=== PATIENT | female | born 1990 | race Caucasian/White ===

== ENCOUNTER 2025-05-11 07:59 | Outpatient (AMB) | payer OTHER, SELFPAY ==
--- OUTSIDE RECORDS SUMMARY | 2025-05-11 08:03 | XMS_ITS | Encounter Summary ---
Author Organization [facility] Address [address] [place] [address] Care Team Providers Care Logging Equipment Mechanic Name Role Phone MeghanSoledad RUSS Primary Care Provider + [phone] Pcp, No Primary Care Provider Unavailabl e Encounter Details Date Type Department Care Team (Latest Contact Info) Description 02/12/2021 Lab Requisition [facility] [address] Through [address] [place] [address] [address] [place] [address] Anuel Haddad MD [address] [place] [address] Encounter for laboratory testing for COVID-19 virus Social History Tobacco Use Types Packs/Day Years Used Date Smoking Tobacco: Never Smokeless Tobacco: Never Alcohol Use Standard Drinks/Week Comments Yes 3 (1 standard drink = 0.6 oz pur e alcohol) Comments No Sex and Gender Information Value Date Recorded Sex Assigned at Not on file Legal Sex Female 9:05 AM EDT Gender Identity Not on file Sexual Orientation Not on file documented as of this encounter Plan of Treatment Not on file documented as of this encounter Procedures Procedure Name Priority Date/Time Associated Diagnosis Comments COVID-19 (SARS-COV-2) - SEMA4 LAB Routine 02/12/2021 10:18 AM EDT Encounter for laboratory testing for COVID-19 virus [ICD-10-CM] documented in this encounter Results * COVID-19 (SARS-COV-2) (SEMA4) (02/12/2021 10:18 AM EDT) COVID-19 RT-PCR NOT-DETEC MERY Not-Detec mery 02/13/2021 2:07 PM EDT GINO AVALOS Comment:Interpretation: The viral RNA was not detected, making the COVID-19 diagnosis less likely. Clinical correlation is highly recommended.Final report signed by Pancho Max, Ph.D., Laboratory DirectorTests performed at [facility] Microbiology Nasopharyngeal swab / Unknown 02/12/2021 10:18 AM EDT 02/12/2021 10:18 AM EDT [facility]ative [facility] - 02/13/2021 2:07 PM EDT Performed by [facility] [address] [place] [address], CLIA# [id number] and [place] License# [id number] us Anuel Haddad MD MICROBIOLOGY - GENERAL ORDER MARIA TERESA Final Result GINO AVALOS documented in this encounter Visit Diagnoses Diagnosis Encounter for laboratory testing for COVID-19 virus documented in this encounter Care Teams Logging Equipment Mechanic Relationship Specialty Start Date End Date Soledad Christianson APRN [address] [place] [address] PCP - General Internal Medicine 10/11/18 02/28/23 Pcp, No PCP - General General Medicine 03/01/23 documented as of this encounter
--- NOTE | 2025-05-11 08:17 | MHC.PC.OV ---
Vital Signs 05/11/25 08:19 Height 5 ft 4.17 in Weight 136 lb 4 oz BMI 23.3 BP 120/72 Blood Pressure Location Lt brachial Position Sitting Pulse 66 Pulse Source Pulse Oximeter Temp 97.1 F Temp Source Temporal Artery Scan Pulse Oximetry (%) 99 Oxygen Delivery Method Room Air Intake Visit Reasons: establish care Intake Note: Patient is a new patient here to establish care for Cholesterol. Transferring care from [facility]. Medical records have been requested and have not received. Groover Operator Required: No Gas Station Service Attendant: Not Required per policy Accompanied by: Self / Same As Patient Allergies No Known Allergies Allergy (Verified 05/11/25 08:26) Medication List - Last Reconciled 05/11/25 by Margarita Woo PA-C spironolactone 50 mg PO BID Tobacco use date assessed: 05/11/25 Dental Screening Dental Screen Date: 05/11/25 Did you have a dental visit in the last 12 months?: Yes Did you have a dental problem in the last 6 months where you did not have access to dental care?: No Was dental information given to patient?: Patient has dentist HPI establish care HPI Details 34-year-old female coming to the office for the 1st time. Presenting for acne management and a consultation regarding breast reduction surgery. The patient has been using spironolactone for acne management, prescribed by a firer tunnel kiln, but has not followed up with the firer tunnel kiln for about a year. The patient reports that the medication has been somewhat effective, but she experiences breakthrough acne and is unsure if she should continue the medication. She has tried various treatments, including topical and oral medications, and is considering dermatology referral for further management. She has been told in the past she has elevated cholesterol. The patient is interested in breast reduction surgery due to discomfort during exercise and shoulder grooves and experiences both mild upper back and lower back pain. [facility] Surgical History History of tonsillectomy Family History Father Oral cancer Other Mental health disorder Substance use disorder Social History Housing: House Alcohol intake: current Alcohol intake frequency: a few times a month Patient Tobacco Use Status: Never used Tobacco e-Cigarette/Vaping Use: Never Used Second Hand Smoke Exposure: No service: Yes Current occupational status: employed Current occupation: Nurse Cognitive needs: No Hearing needs: No Vision needs: Yes (Glasses) Female Reproductive History Menstrual control method: none Total pregnancies: 0 History of abnormal pap smear: No Questionnaire PHQ-9 Over the last 2 weeks, how often have you been bothered by any of the following problems? 1. Little interest or pleasure in doing things: not at all 2. Feeling down, depressed, or hopeless: not at all 3. Trouble falling or staying asleep, or sleeping too much: not at all 4. Feeling tired or having little energy: not at all 5. Poor appetite or overeating: not at all 6. Feeling bad about yourself - or that you are a failure or have let yourself or your family down: not at all 7. Trouble concentrating on things, such as reading the newspaper or watching television: not at all 8. Moving or speaking so slowly that other people could have noticed. Or the opposite - being so fidgety or restless that you have been moving around a lot more than usual: not at all 9. Thoughts that you would be better off or of hurting yourself in some way: not at all Total score: 0 Depression Screening Interpretation: Negative Depression Screening Done: Yes 52822 - PHQ-9 Billing: Yes Source: Developed by Drs. Burt Garcia, Wendy Armando, Blake Eldridge and colleagues, with an educational jeffery from [employer]. Thrive Questionnaire Date Thrive assessed: 05/11/25 I am a: Patient What is your living situation today?: I have a steady place to live Within the past 12 months, did the food you bought not last and you didn't have the money to get more?: Never true Within the past 12 months, did you worry whether your food would run out before you got money to buy more?: Never true Do you have trouble paying for medicines?: No Do you have trouble getting transportation to medical appointments?: No Do you have trouble paying your heating and electricity bill?: No Do you have trouble taking care of your child, family member or friend?: No Do you have trouble with day-to-day activities such as bathing, preparing meals, shopping, managing finances, etc.?: No Are you currently unemployed and looking for a job?: No Are you interested in more education?: No Please select the resources that you would like help with: None Currently or been in a relationship where the following occur: No concerns reported THRIVE Score: 0 AUDIT C Alcohol Use Questionnaire (AUDIT-C) 1. How often do you have a drink containing alcohol?: Monthly or less 2. How many drinks containing alcohol do you have on a typical day when you are drinking?: 1 or 2 3. How often do you have six or more drinks on one occasion?: Never Total Score: 1 HAROON-7 AMB Questionnaire HAROON-7 Date HAROON - 7 assessed: 05/11/25 Feeling nervous, anxious, or on edge: 0 = Not at all Not being able to stop or control worryin = Not at all Worrying too much about different things: 0 = Not at all Trouble relaxin = Not at all Being so restless that it is hard to sit still: 0 = Not at all Becoming easily annoyed or irritable: 0 = Not at all Feeling afraid as if something awful might happen: 0 = Not at all Total HAROON-7 score (0-4 normal; 5-9 mild; 10-14 moderate; 15-21 severe): 0 Source: Developed by Drs. Burt Garcia, Wendy Armando, Blake Eldridge and colleagues, with an educational jeffery from [employer]. HAROON-7 Assessment Billing HAROON-7 Assessment Tool: HAROON-7 Assessment 37725 Review of Systems Const Denies body aches, Denies chills, Denies fever(s), Denies headache(s) and Denies poor appetite Eyes Reports no additional complaints ENT Denies dysphagia, Denies dizziness, Denies headache(s) and Denies odynophagia Card Denies chest pain, Denies syncope, Denies edema, Denies irregular heart rhythm, Denies lightheadedness and Denies dyspnea Resp Denies cough and Denies dyspnea GI Denies abdominal pain, Denies constipation, Denies dysphagia, Denies diarrhea, Denies nausea, Denies odynophagia and Denies vomiting Reports no additional complaints Musc Reports no additional complaints and Denies abnormal gait Skin/Breast Reports system reviewed and no additional complaints, except as documented Neuro Denies abnormal gait, Denies dizziness, Denies syncope and Denies headache(s) Psych Reports no additional complaints Physical exam (Primary Care) Vital Signs: Last Vital Signs Temp 97.1 F 05/11/25 08:19 Pulse 66 05/11/25 08:19 BP 120/72 05/11/25 08:19 Pulse Ox 99 05/11/25 08:19 Oxygen Delivery Method Room Air 05/11/25 08:19 BMI result Body Mass Index 23.3 Tobacco/Smoking Status: Tobacco use Status Tobacco use date assessed 05/11/25 05/11/25 08:26 Patient Tobacco Use Status Never used Tobacco 05/11/25 08:26 e-Cigarette/Vaping Use Never Used 05/11/25 08:26 PHQ-9: PHQ-9 Score PHQ-9: Total score 0 05/11/25 08:37 Depression Screening Interpretation: Negative Thrive Assessment: Date of Thrive Assessment Date Thrive assessed 05/11/25 05/11/25 08:26 Currently or been in a relationship where the following occur: No concerns reported Const General: cooperative, healthy appearing, comfortable and no acute distress Orientation/consciousness: patient oriented x3 HENMT Head: Yes normocephalic Ears: hearing grossly normal bilaterally General nose exam: Normal external nose present Eyes General: appearance normal, both eyes and all related structures Conjunctivae: conjunctivae normal Neck Neck: Yes full ROM and Yes no lymphadenopathy Resp Effort & Inspection: normal respiratory effort Auscultation: clear to auscultation bilaterally, no crackles, no rales, no rhonchi and no wheezes Cardio Rate: regular rate Rhythm: regular rhythm Skin General skin exam: no rashes or lesions noted Neuro General: patient oriented x3 Gait exam (Neuro): Normal gait present Extrem General: Yes normal to inspection, Yes full ROM and No edema Psych Affect: normal affect Attitude: cooperative Insight: Good insight present (Psych) Judgement: Good judgement present (Psych) Coding Level of Care Code New Pt Level 4 (74989) Diagnoses Acne L70.9 Hypercholesterolemia E78.00 Large breasts N62 Chronic midline low back pain without sciatica M54.50; G89.29 Back pain location: low back pain Chronicity: chronic Back pain laterality: midline Sciatica presence: without sciatica Additional Codes HAROON-7 Assessment Billing - HAROON-7 Assessment Tool: HAROON-7 Assessment 44639 ([id number]) PHQ-9 - 75292 - PHQ-9 Billing: Yes ([id number]) Assessment & Plan Assessment & Plan (1) Acne: Code(s): L70.9 - Acne, unspecified Category: Medical Plan: Patient is currently on spironolactone b.i.d. for management of acne. She has tried oral and topical doxycycline without good improvement. Referral was placed to Dermatology today. (2) Hypercholesterolemia: Code(s): E78.00 - Pure hypercholesterolemia, unspecified Category: Medical Plan: Avoid foods that are high in cholesterol such as red meat, fried foods, eggs and baked goods. Triglyceride goal of less than 150 and LDL goal of less than 130. Ordered for updated blood work (3) Large breasts: Code(s): N62 - Hypertrophy of breast Category: Medical Plan: Referral will be placed to [facility] Plastic surgery with medical necessity letter today. (4) Back pain: Code(s): M54.9 - Dorsalgia, unspecified Category: Medical Qualifiers: Back pain location: low back pain Chronicity: chronic Back pain laterality: midline Sciatica presence: without sciatica Qualified Code(s): M54.50 - Low back pain, unspecified; G89.29 - Other chronic pain Plan: Patient has upper and lower back pain worsened after exercise which she believes is due to the size of her breasts. Referral was placed to Plastic surgery today for consideration of breast reduction. Plan The patient will continue with spironolactone for acne management, with a referral to dermatology for further evaluation and management options. A dermatology referral will be provided, and local dermatology offices will be listed for the patient to choose from. Blood work has been ordered. A referral to plastic surgery for breast reduction has been initiated, and a medical necessity letter will be written to support the procedure. The patient will be scheduled for a follow-up visit in three months to review blood work results and discuss any further management needed. Preventative care measures, including up-to-date Pap smears and no family history of breast cancer, have been noted. This note was constructed using voice recognition software. While every effort has been made to ensure accuracy and pulmonary function technologist, still areas may have been included sometimes these areas may affect the content or meeting of the given symptoms. Total time spent caring for the patient today was 30 minutes. This includes time spent before the visit reviewing the chart, time spent during the visit, and time spent after the visit and documentation. Patient was informed and verbally consented to the use of an ambient scribe for clinic note documentation during this visit. Orders: Orders Complete Blood Count Auto Diff Today E78.00 - Pure hypercholesterolemia, unspecified, Z00.00 - Encounter for general adult medical examination without abnormal findings Vitamin D 25-OH Total Today E78.00 - Pure hypercholesterolemia, unspecified, Z00.00 - Encounter for general adult medical examination without abnormal findings Vitamin B12 and Folate Today E78.00 - Pure hypercholesterolemia, unspecified, Z13.21 - Encounter for screening for nutritional disorder Free T4 (Free Thyroxine) Today E78.00 - Pure hypercholesterolemia, unspecified, Z00.00 - Encounter for general adult medical examination without abnormal findings Lipid Panel Today E78.00 - Pure hypercholesterolemia, unspecified Comprehensive Met. Panel Today E78.00 - Pure hypercholesterolemia, unspecified, Z00.00 - Encounter for general adult medical examination without abnormal findings TSH reflex Free T4 Today E78.00 - Pure hypercholesterolemia, unspecified, Z00.00 - Encounter for general adult medical examination without abnormal findings Referrals Dermatology Referral L70.9 - Acne, unspecified Plastic Surgery Referral M54.9 - Dorsalgia, unspecified, N62 - Hypertrophy of breast Medications: New spironolactone 50 mg PO BID 60 tabs 1RF
[2025-05-11 08:19] VITALS: BP 120/72; PULSE 66; TEMP 36.2; O2SAT 99; BMI 23.3
== END 2025-05-11 08:51 | disposition home or self-care (01) ==
LOC: HO.HMCH 07:59
DX: L70.9 Acne, unspecified (principal); E78.00 Pure hypercholesterolemia, unspecified; N62 Hypertrophy of breast; M54.50 Low back pain, unspecified; G89.29 Other chronic pain

== ENCOUNTER → 2025-05-11 07:59 | Outpatient (BNVA) | payer OTHER, SELFPAY | DX: L70.9 Acne, unspecified (principal); E78.00 Pure hypercholesterolemia, unspecified; N62 Hypertrophy of breast; M54.50 Low back pain, unspecified; G89.29 Other chronic pain | CPT/HCPCS: 96127; 99202 ==

== ENCOUNTER 2025-05-21 07:52 | Outpatient (REF) | payer OTHER, SELFPAY ==
--- OUTSIDE RECORDS SUMMARY | 2025-05-21 07:56 | XMS_ITS | Encounter Summary ---
Author Organization [facility] Address [address] [place] [address] Care Team Providers Care Land Lease Information Clerk Name Role Phone MeghanSoledad RUSS Primary Care Provider + [phone] Pcp, No Primary Care Provider Unavailabl e Encounter Details Date Type Department Care Team (Latest Contact Info) Description 02/12/2021 Lab Requisition [facility] [address] Through [address] [place] [address] [address] [place] [address] Anuel Haddad MD [address] [place] [address] Encounter for laboratory testing for COVID-19 virus [...] Pancho Max, Ph.D., Laboratory DirectorTests performed at [facility] Microbiology Nasopharyngeal swab / Unknown 02/12/2021 10:18 AM EDT 02/12/2021 10:18 AM EDT [facility]ative [facility] - 02/13/2021 2:07 PM EDT Performed by [facility] [address] [place] [address], CLIA# [id number] and [place] License# [id number] us Anuel Haddad MD MICROBIOLOGY - GENERAL ORDER MARIA TERESA Final Result GINO AVALOS documented in this encounter Visit Diagnoses Diagnosis Encounter for laboratory testing for COVID-19 virus documented in this encounter Care Teams Land Lease Information Clerk Relationship Specialty Start Date End Date Soledad Christianson APRN [address] [place] [address] PCP - General Internal Medicine 10/11/18 02/28/23 Pcp, No PCP - General General Medicine 03/01/23 documented as of this encounter
[2025-05-21 08:04] LABS: MANUAL DIFF FLAG NO
[2025-05-21 08:05] LABS: Basophils Absolute Auto 0.1 X10*3/uL (0.0-0.2); Basophils Percent Auto 1.2 % (0-2); Hematocrit 39.4 % (37.0-47.0); Hemoglobin 13.4 g/dl (12.0-16.0); Imm Gran Abs Auto 0.01 X10*3/uL (0.00-0.03); Imm Gran Pct Auto 0.2 % (0.0-0.4); Lymphocytes Absolute Auto 1.1 X10*3/uL (1.2-4.9); Lymphocytes Percent Auto 26.5 % (20-40); Mean Corpuscular Volume 88.3 fL (80.0-98.0); Mean Platelet Volume 8.2 fL (9.4-12.3); Monocytes Absolute Auto 0.2 X10*3/uL (0.1-1.2); Monocytes Percent Auto 5.8 % (2-11); Neutrophils Absolute Auto 2.7 x10*3/uL (2.0-8.3); Neutrophils Percent Auto 65.3 % (45-73); Platelet Count 324 X10*3/uL (160-400); Red Blood Count 4.46 X10*6/uL (4.20-5.50); Red Cell Distribution Width 12.2 % (11.0-16.0); White Blood Count 4.2 X10*3/uL (4.8-10.8)
[2025-05-21 09:36] LABS: Alanine Aminotransferase 21 U/L (0-31); Albumin Level 4.8 g/dL (3.5-5.0); Alkaline Phosphatase 71 U/L (39-117); Anion Gap 11 (12-20); Aspartate Amino Transferase 27 U/L (5-31); Bilirubin Total 0.5 mg/dL (0.0-1.0); Blood Urea Nitrogen 17 mg/dL (9-16); Calcium 9.2 mg/dL (8.4-10.2); Carbon Dioxide 27 mmol/L (22-29); Chloride 105 mmol/L (96-108); Cholesterol 205 mg/dL (<200); Estimated Glomerular Filt Rate > 60; Glucose Random 81 mg/dL (60-115); HDL Cholesterol 66 mg/dL (>40); LDL Cholesterol Calculated 131 mg/dL (<100); Potassium 4.4 mmol/L (3.3-5.1); Sodium 139 mmol/L (135-145); Total Protein 7.4 g/dL (6.5-8.0); Triglycerides 42 mg/dL (<150)
[2025-05-21 09:40] LABS: Free T4 (Free Thyroxine) 0.96 ng/dL (0.71-1.85); TSH reflex Free T4 1.66 uIU/mL (0.32-4.0); Vitamin D 25-OH Total 23.9 ng/mL (>30)
[2025-05-21 09:44] LABS: Folate 9.3 ng/mL (> or = 4.0)
[2025-05-21 10:11] LABS: Vitamin B12 489 pg/mL (200-900)
== END 2025-05-21 07:53 | disposition home or self-care (01) ==
LOC: HO.LAB 07:52
DX: Z00.00 Encounter for general adult medical examination without abnormal findings (principal); E78.00 Pure hypercholesterolemia, unspecified; Z13.21 Encounter for screening for nutritional disorder
CPT/HCPCS: 36415; 80053; 80061; 82306; 82607; 82746; 84439; 84443; 85025

== ENCOUNTER 2025-08-12 08:31 | Outpatient (AMB) | payer OTHER, SELFPAY ==
[2025-08-12 08:33] VITALS: BP 120/62; PULSE 77; O2SAT 99; BMI 22.9
--- NOTE | 2025-08-12 08:33 | A.OFFPC_ITS ---
Vital Signs 08/12/25 08:33 Height 5 ft 4.17 in Weight 134 lb 2 oz BMI 22.9 BP 120/62 Blood Pressure Location Lt brachial Position Sitting Pulse 77 Pulse Source Pulse Oximeter Pulse Oximetry (%) 99 Oxygen Delivery Method Room Air Intake Visit Reasons: Annual Exam Hair Dresser Required: No Accompanied by: Self / Same As Patient Allergies No Known Allergies Allergy (Verified 08/12/25 08:44) Medication List - Last Reconciled 08/12/25 by Margarita Woo PA-C spironolactone 50 mg PO BID Tobacco use date assessed: 05/11/25 Dental Screening Dental Screen Date: 08/12/25 Did you have a dental visit in the last 12 months?: Yes Did you have a dental problem in the last 6 months where you did not have access to dental care?: No Was dental information given to patient?: Patient has dentist HPI Annual Exam HPI Details 35-year-old female with past medical his tory of hypercholesterolemia last seen 04/2025 coming in for annual exam. Presenting for a routine physical examination. The patient is up to date on Pap smears, with the last one conducted on March 19, and is advised to get a referral for gynecology. The patient has an upcoming dermatology appointment and is undergoing physical therapy for back pain, with minimal improvement noted. Pap smear: chairlift operator 2023 Vaccinations: Td UTD she believes [facility] Surgical History History of tonsillectomy Family History Father Oral cancer Other Mental health disorder Substance use disorder Social History Housing: House Alcohol intake: current Alcohol intake frequency: a few times a month Patient Tobacco Use Status: Never used Tobacco e-Cigarette/Vaping Use: Never Used Second Hand Smoke Exposure: No service: Yes Current occupational status: employed Current occupation: Nurse Cognitive needs: No Hearing needs: No Vision needs: Yes (Glasses) Questionnaire Thrive Questionnaire Date Thrive assessed: 05/11/25 I am a: Patient What is your living situation today?: I have a steady place to live Within the past 12 months, did the food you bought not last and you didn't have the money to get more?: Never true Within the past 12 months, did you worry whether your food would run out before you got money to buy more?: Never true Do you have trouble paying for medicines?: No Do you have trouble getting transportation to medical appointments?: No Do you have trouble paying your heating and electricity bill?: No Do you have trouble taking care of your child, family member or friend?: No Do you have trouble with day-to-day activities such as bathing, preparing meals, shopping, managing finances, etc.?: No Are you currently unemployed and looking for a job?: No Are you interested in more education?: No Please select the resources that you would like help with: None Currently or been in a relationship where the following occur: No concerns reported THRIVE Score: 0 HAROON-7 AMB Questionnaire HAROON-7 Date HAROON - 7 assessed: 05/11/25 Source: Developed by Drs. Burt Garcia, Wendy Armando, Blake Eldridge and colleagues, with an educational jeffery from [employer]. Review of Systems Const Denies body aches, Denies chills, Denies fever(s), Denies headache(s) and Denies poor appetite Eyes Reports no additional complaints ENT Denies dysphagia, Denies dizziness, Denies headache(s) and Denies odynophagia Card Denies chest pain, Denies syncope, Denies edema, Denies irregular heart rhythm, Denies lightheadedness and Denies dyspnea Resp Denies cough and Denies dyspnea GI Denies abdominal pain, Denies constipation, Denies dysphagia, Denies diarrhea, Denies nausea, Denies odynophagia and Denies vomiting Reports no additional complaints Musc Reports no additional complaints and Denies abnormal gait Skin/Breast Reports system reviewed and no additional complaints, except as documented Neuro Denies abnormal gait, Denies dizziness, Denies syncope and Denies headache(s) Psych Reports no additional complaints Physical exam (Primary Care) Vital Signs: Last Vital Signs Pulse 77 08/12/25 08:33 BP 120/62 08/12/25 08:33 Pulse Ox 99 08/12/25 08:33 Oxygen Delivery Method Room Air 08/12/25 08:33 BMI result Body Mass Index 22.9 Tobacco/Smoking Status: Tobacco use Status Tobacco use date assessed 05/11/25 08/12/25 08:39 Patient Tobacco Use Status Never used Tobacco 08/12/25 08:39 e-Cigarette/Vaping Use Never Used 08/12/25 08:39 Thrive Assessment: Date of Thrive Assessment Date Thrive assessed 05/11/25 08/12/25 08:39 Currently or been in a relationship where the following occur: No concerns reported Const General: cooperative, healthy appearing, comfortable and no acute distress Orientation/consciousness: patient oriented x3 HENMT Head: Yes normocephalic Ears: hearing grossly normal bilaterally, external ears normal, TM's normal bilaterally and EAC's normal General nose exam: Normal external nose present Face and sinus: Yes normal facial exam and Yes sinuses nontender Mouth: Normal oral and palatal mucosa present and tongue normal Throat: Yes posterior oropharynx normal Eyes General: appearance normal, both eyes and all related structures Conjunctivae: conjunctivae normal Pupils: Equal, round and reactive pupils present EOM: EOMs intact bilaterally and No Nystagmus present Neck Neck: Yes normal visual inspection, Yes full ROM and Yes no lymphadenopathy Chest Chest palpation & inspection: normal inspection of the chest Resp Effort & Inspection: normal respiratory effort Auscultation: clear to auscultation bilaterally, no crackles, no rales, no rhonchi, no wheezes and breath sounds present Cardio Rate: regular rate Rhythm: regular rhythm Peripheral pulses: radial pulses present and dorsalis pedis present GI Inspection: Yes normal to inspection and No Abdominal wall edema Palpation (GI): Soft to palpation, not firm and nontender Auscultation: normal bowel sounds Rectal Exam - Female: deferred General: Yes no CVA tenderness Back/Spine/Pelvis Back: no CVA tenderness Skin General skin exam: no rashes or lesions noted Neuro General: patient oriented x3 Cranial nerves: Yes Equal, round and reactive pupils present, Yes Midline tongue present, Yes Ability to bilaterally elevate shoulders present and No Nystagmus present Gait exam (Neuro): Normal gait present Extrem General: Yes normal to inspection, Yes full ROM, No no pedal edema and No edema Psych Speech and movement: Normal speech and movement present Affect: normal affect Insight: Good insight present (Psych) Judgement: Good judgement present (Psych) Coding Level of Care Code Est Pt Prev Care 18-39y(38244) Diagnoses Annual physical exam Z00.00 Hypercholesterolemia E78.00 Acne L70.9 Large breasts N62 Chronic midline low back pain without sciatica M54.50; G89.29 Back pain location: low back pain Chronicity: chronic Back pain laterality: midline Sciatica presence: without sciatica Vitamin D deficiency E55.9 Assessment & Plan Assessment & Plan (1) Annual physical exam: Code(s): Z00.00 - Encounter for general adult medical examination without abnormal findings Category: Medical Plan: Patient is up-to-date on all recommended routine screenings for her age. She believes she is up-to-date on her vaccinations however most recent TD is 2008. She will check with her most recent records see if this is up-to-date. Blood work is up-to-date and has been reviewed with the patient today. Plan to follow up yearly or sooner as needed (2) Hypercholesterolemia: Code(s): E78.00 - Pure hypercholesterolemia, unspecified Category: Medical Plan: Avoid foods that are high in cholesterol such as red meat, fried foods, eggs and baked goods. Triglyceride goal of less than 150 and LDL goal of less than 130. Last LDL within goal. (3) Acne: Code(s): L70.9 - Acne, unspecified Category: Medical Plan: Patient is currently on spironolactone b.i.d. for management of acne. She has tried oral and topical doxycycline without good improvement. Has appointment with dermatology in December. (4) Large breasts: Code(s): N62 - Hypertrophy of breast Category: Medical Plan: Had meeting with [facility] plastic surgery and undergoing PT at this time and consideration for surgery to follow. (5) Back pain: Code(s): M54.9 - Dorsalgia, unspecified Category: Medical Qualifiers: Back pain location: low back pain Chronicity: chronic Back pain laterality: midline Sciatica presence: without sciatica Qualified Code(s): M 54.50 - Low back pain, unspecified; G89.29 - Other chronic pain Plan: Patient has upper and lower back pain worsened after exercise which she believes is due to the size of her breasts. Has been working with PT and has not yet seen improvement. (6) Vitamin D deficiency: Code(s): E55.9 - Vitamin D deficiency, unspecified Category: Medical Plan: She will obtain supplementation over the counter. Plan This note was constructed using voice recognition software. While every effort has been made to ensure accuracy and swine nutritionist, still areas may have been included sometimes these areas may affect the content or meeting of the given symptoms. Total time spent caring for the patient today was 30 minutes. This includes time spent before the visit reviewing the chart, time spent during the visit, and time spent after the visit and documentation. Patient was informed and verbally consented to the use of an ambient scribe for clinic note documentation during this visit. Orders: Referrals DECORATING INSPECTOR Referral Z12.4 - Encounter for screening for malignant neoplasm of cervix
--- OUTSIDE RECORDS SUMMARY | 2025-08-12 09:43 | XMS_ITS | Encounter Summary ---
Author Organization [facility] Address [address] [place] [address] Care Team Providers Care Dragline Engineer Name Role Phone Soledad Christianson APRN Primary Care Provider + [phone] Pcp, No Primary Care Provider Unavailabl e Encounter Details Date Type Department Care Team (Late st Contact Info) Description 10/11/2018 Scanned Document [address] [place] [phone] Provider, Generic Social History Tobacco Use Types Packs/Day Years [...] Procedure Name Priority Date/Time Associated Diagnosis Comments HOME CARE SIGNED ORDERS 10/11/2018 documented in this encounter Results * HOME CARE SIGNED ORDERS (10/11/2018) Narrative 10/11/2018 Ordered by an unspecified provider. us Generic Provider HX AMB PROCEDURES NO RESULTS RO UTING Edited Result - Final documented in this encounter Visit Diagnoses Not on filedocumented in this encounter Care Teams Dragline Engineer Relationship Specialty Start Date End Date Soledad Christianson APRN [address] [place] [address] PCP - General Internal Medicine 10/11/18 02/28/23 Pcp, No PCP - General General Medicine 03/01/23 documented as of this encounter
--- OUTSIDE RECORDS SUMMARY | 2025-08-12 09:43 | XMS_ITS | Patient Health Record ---
Author Organization [facility] Address [address] [place] [address] Care Team Providers Care Spreader Operator Name Role Phone NICK CALDERON Unavailable [phone] Allergies No Known Allergies Reason For Referral No Information Social History Tobacco Use: Social History Observation Description Date Details (start date - stop date) Never Smoker NA - NA Tobacco Use/Smoking Question Answer Notes Are you a nonsmoker Alcohol Screen (Audit-C) Question Answer Notes Did you have a drink contain ing alcohol in the past year? Yes How often did you have a dri nk containing alcohol in the past year? 2 to 3 times a week (3 points) How many drinks did you have on a typical day when you were drinking in the past year? 1 or 2 drinks (0 point) How often did you have 6 or more drinks on one occasion in the past year? Never (0 point) Points 3 Interpretation Positive Plan Of Treatment No Information Insurance Providers Payer Name Payer Address Payer Phone Subscriber Number Group Number Insured Name Patient Relationship to Insured Coverage Start Date Coverage End Date [facility] [address] [place] [id number] ELVIS SMITH Self - patient is the insured Medical (General) History Medical History History ICD Code Acne, unspecified L70.9 Surgical History Surgery Date(Month/Year) Tonsillectomy 10/2017
--- OUTSIDE RECORDS SUMMARY | 2025-08-12 09:43 | XMS_ITS | Clinical Summary ---
Author Organization [facility] Address [address] [place] [address] Care Team Providers Care Supply Tech Name Role Phone Pcp, No Primary Care Provider Unavailabl e Allergies No known active allergies Medications doxycycline (VIBRAMYCIN) 100 MG capsule 09/24/2018 Active Immunizations Immunization Administration Dates Next Due Covid-19 mRNA Primary Series Vaccine - Moderna 0.5 mL Full Dose 12/17/2020,11/17/2020 Family History Medical History Relation Name Comments No Known Problems Father No Known Problems Mother No Known Problems Sister Relation Name Status Comments Father Alive Mother Alive Sister Alive Social History Tobacco Use Types Packs/Day Years Used Date Smoking Tobacco: Never Smokeless Tobacco: Never Alcohol Use Standard Drinks/Week Comments Yes 3 (1 standard drink = 0.6 oz pur e alcohol) Comments No Sex and Gender Information Value Date Recorded Sex Assigned at Not on file Legal Sex Female 9:05 AM EDT Gender Identity Not on file Sexual Orientation Not on file Last Filed Vital Signs Vital Sign Reading Time Taken Comments Blood Pressure 118/79 10/11/2018 4:37 PM EST Pulse 59 10/11/2018 4:37 PM EST Temperature 36.6 C (97.8 F) 10/11/2018 4:37 PM EST Respiratory Rate 16 10/11/2018 4:37 PM EST Oxygen Saturation - - Inhaled Oxygen Concentration - - Weight 62.1 kg (137 lb) 10/11/2018 4:37 PM EST Height 165.1 cm (5' 5 ) 10/11/2018 4:37 PM EST Body Mass Index 22.8 10/11/2018 4:37 PM EST Plan of Treatment Health Maintenance Due Date Last Done Comments Hepatitis C Virus Screening 1988 HIV Screening 2001 DTaP/Tdap/Td Vaccines (1 - Tdap) 2007 Hepatitis B Vaccines (1 of 3 - 19+ 3-dose series) 2007 Pap Smear (Ages 21-65) 2009 HPV Vaccines (1 - 3-dose SCD M series) 2015 Influenza Vaccine 06/26/2025 09/22/2020 COVID-19 Vaccine (3 - 2024-2 6 season) 2025 12/17/2020, 11/17/2020 Pneumococcal Vaccine: Pediatric (0-5 Years) and At-Risk Patients (6 to 49 Years) Aged Out No longer eligible b ased on patient's age to complete this topic Insurance [facility] Care Teams Supply Tech Relationship Specialty Start Date End Date Pcp, No PCP - General General Medicine 03/01/23
--- OUTSIDE RECORDS SUMMARY | 2025-08-12 09:43 | XMS_ITS | Encounter Summary ---
Author Organization [facility] Address [address] [place] [address] Care Team Providers Care Field Service Coordinator Name Role Phone MeghanSoledad RUSS Primary Care Provider + [phone] Pcp, No Primary Care Provider Unavailabl e Encounter Details Date Type Department Care Team (Latest Contact Info) Description 02/12/2021 Lab Requisition [facility] [address] Through [address] [place] [address] [address] [place] [address] Anuel Haddad MD [address] [place] [address] Encounter for laboratory testing for COVID-19 virus [...] Pancho Max, Ph.D., Laboratory DirectorTests performed at [facility] Nasopharyngeal swab / Unknown 02/12/2021 10:18 AM EDT 02/12/2021 10:18 AM EDT N[facility]ative [facility] - 02/13/2021 2:07 PM EDT Performed by [facility] [address] [place] [address], CLIA# [id number] and [place] License# [id number] us Anuel Haddad MD MICROBIOLOGY - GENERAL ORDER MARIA TERESA Final Result GINO AVALOS documented in this encounter Visit Diagnoses Diagnosis Encounter for laboratory testing for COVID-19 virus documented in this encounter Care Teams Field Service Coordinator Relationship Specialty Start Date End Date Soledad Christianson APRN [address] [place] [address] PCP - General Internal Medicine 10/11/18 02/28/23 Pcp, No PCP - General General Medicine 03/01/23 documented as of this encounter
--- OUTSIDE RECORDS SUMMARY | 2025-08-12 09:43 | XMS_ITS | Encounter Summary ---
Author Organization [facility] Address [address] [place] [address] Care Team Providers Care Machine Stamper Name Role Phone Pcp, No Primary Care Provider Unavailabl e Soledad Christianson APRN Primary Care Provider [phone] Pcp, No Primary Care Provider Unavailabl e Encounter Details Date Type Department Care Team (Late st Contact Info) Description 08/22/2018 Scanned Document [address] [phone] Sergio Boo MD [address] [place] [address] Social History Tobacco Use Types Packs/Day Years Used Date Smoking Tobacco: Never Assessed Comments Unknown Sex and Gender Information Value Date Recorded Sex Assigned at Not on file Legal Sex Female 9:05 AM EDT Gender Identity Not on file Sexual Orientation Not on file documented as of this encounter Plan of Treatment Not on file documented as of this encounter Visit Diagnoses Not on filedocumented in this encounter Care Teams Machine Stamper Relationship Specialty Start Date End Date Pcp, No PCP - General General Medicine 07/24/18 10/10/18 Soledad Christianson APRN [address] [place] [address] PCP - General Internal Medicine 10/11/18 02/28/23 Pcp, No PCP - General General Medicine 03/01/23 documented as of this encounter
--- OUTSIDE RECORDS SUMMARY | 2025-08-12 09:43 | XMS_ITS | Encounter Summary ---
Author Organization [facility] Address [address] [place] [address] Care Team Providers Care Car Varnisher Name Role Phone Pcp, No Primary Care Provider Unavailabl e Soledad Christianson APRN Primary Care Provider [phone] Pcp, No Primary Care Provider Unavailabl e Encounter Details Date Type Department Care Team (Late st Contact Info) Description 08/22/2018 Scanned Document [address] [phone] Sergio Boo MD [address] [place] [address] Social History Tobacco Use Types Packs/Day Years [...] on filedocumented in this encounter Care Teams Car Varnisher Relationship Specialty Start Date End Date Pcp, No PCP - General General Medicine 07/24/18 10/10/18 Soledad Christianson APRN [address] [place] [address] PCP - General Internal Medicine 10/11/18 02/28/23 Pcp, No PCP - General General Medicine 03/01/23 documented as of this encounter
== END 2025-08-12 09:00 | disposition home or self-care (01) ==
LOC: HO.HMCH 08:32
DX: Z00.00 Encounter for general adult medical examination without abnormal findings (principal); E78.00 Pure hypercholesterolemia, unspecified; L70.9 Acne, unspecified; N62 Hypertrophy of breast; M54.50 Low back pain, unspecified; G89.29 Other chronic pain; E55.9 Vitamin D deficiency, unspecified

== ENCOUNTER 2025-09-02 15:00 | Outpatient (RCR) | payer OTHER, SELFPAY ==
--- NOTE | 2025-07-01 08:46 | MHC.PT.EP ---
[facility] [place] Office [place] Office [place] Office [address] [phone] F: [phone] F: [phone] F: [phone] F: [phone] Physical Therapy Plan of Care Date of Evaluation: 07/01/25 Date of Surgery: n/a Diagnosis: chronic back pain Assessment: Patient is a 34 year old female presenting to PT with complaints of pain in her upper back. Pt reports onset of pain began 1 year ago due to insidious onset. She presents today with impairments in posture, periscap strength. 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 Pt expresses continuous churn buttermaker goal of reducing pain, and is motivated to work towards this in PT. Clinical presentation today is most consistent with signs and sx associated with upper back pain and pt will benefit from skilled PT 2 week x 4 weeks to address the following problems and impairments noted upon evaluation: posture, periscap strength. These problems limit the patient with the following functional activities: work, ADLs. The prescribed treatment plan of care is medically necessary. Co-morbidities of none were identified and taken into considerations of plan of care. Pt was educated on HEP, role of PT, prognosis, POC. Frequency and Duration: The patient will be seen 2 x week x 4 weeks Short Term Goals: Pt will demonstrate compliance with initial HEP in 2 visits. Pt will demonstrate improved periscap strength by 1/3 grade in 2 weeks. Group Home Goals: Pt will demonstrate improved pain overall with ADLs and work activities for return to PLOF. Pt will demonstrate NDI score <5% disability in 4 weeks for improved functional mobility. Treatment Plan: Modalities to reduce pain, spasms and effusion. Manual therapy to restore motion and function. Therapeutic exercise to improve strength and flexibility. Neuromuscular re-education for posture and balance. Therapeutic activities to return to functional activities of daily living. Electronically signed by: Mechelle Thomas, PT, DPT, ATC Please sign and return to therapist. Thank you for your referral.
--- NOTE | 2025-09-08 09:19 | MHC.PT.DC ---
[facility] [place] [facility] [place] [facility] [place] [facility] [address] Alicia Brennan [address] [phone] F: [phone] F: [phone] F: [phone] F: [phone] Physical Therapy Discharge Report Diagnosis: upper back pain Date of Surgery: n/a Date of Evaluation: 07/01/25 Date of Discharge: 09/08/25 Treatments to Date: 8 Cancellations to Date: 2 No Shows to Date: 0 Discharge Status: Independent with HEP Recommend MD Follow-up Discharge Summary: Pt attended last PT appointment with OCEANOGRAPHY TEACHER. She continues to have a lot of tightness in her upper back and neck area. Recommend following up with her referring provider to discuss ongoing pain/tightness. Electronically signed by: Mechelle Thomas, PT, DPT, ATC Please sign and return to therapist. Thank you for your referral.
== END 2025-09-08 09:20 | disposition home or self-care (01) ==
LOC: HO.PTCHIC 15:00
DX: M54.50 Low back pain, unspecified (principal); M54.2 Cervicalgia; G89.29 Other chronic pain
CPT/HCPCS: 97110; 97140; 97161

== ENCOUNTER 2025-10-13 10:53 | Outpatient (AMB) | payer OTHER, SELFPAY ==
[2025-10-13 11:03] VITALS: BP 122/74; PULSE 73; TEMP 36.3; O2SAT 99; BMI 22.9
--- NOTE | 2025-10-13 11:03 | A.OFFPC_ITS ---
Vital Signs 10/13/25 11:03 Height 5 ft 4.17 in Weight 134 lb 2 oz BMI 22.9 BP 122/74 Blood Pressure Location Lt brachial Position Sitting Pulse 73 Pulse Source Pulse Oximeter Temp 97.3 F Temp Source Temporal Artery Scan Pulse Oximetry (%) 99 Oxygen Delivery Method Room Air Intake Visit Reasons: sore throat, nasal drip, cough Allergies No Known Allergies Allergy (Verified 10/13/25 11:05) Medication List - Last Reconciled 10/13/25 by Vandana Patricia MD benzocaine (Chloraseptic Warming Sore Throat) 15 mg mucous membrane Q3H PRN dextromethorphan-guaifenesin 5-100 mg/5 mL (Robitussin Cough-Chest Congestion DM) 10 mL PO Q4-8H PRN fluticasone propionate 50 mcg/actuation 1 spray intranasal DAILY metformin 500 mg PO DAILY naproxen 500 mg PO BID PRN valacyclovir 1,000 mg PO BID PRN Tobacco use date assessed: 10/13/25 Dental Screening Dental Screen Date: 10/13/25 Did you have a dental visit in the last 12 months?: Yes Did you have a dental problem in the last 6 months where you did not have access to dental care?: No Was dental information given to patient?: Patient has dentist HPI HPI Comments History of Present Illness Details The patient is a 35-year-old female presenting with cold-like symptoms that started approximately one week ago. She reports nasal congestion, a productive cough with yellow-green sputum that began two days ago, and hoarseness that started last Sunday. She also notes an intermittent sore throat, postnasal drip, some throat itchiness. The patient denies fever, chills, facial pain, or difficulty breathing. For self-treatment, she has been using a decongestant for the past 3-4 days, Tylenol as needed, and NyQuil to help with sleep, though her cough was worse last night. Her only regular medication is metformin. She reports receiving her flu vaccine at the end of August. [facility] Surgical History History of tonsillectomy Family History Father Oral cancer Other Mental health disorder Substance use disorder Social History Housing: House Alcohol intake: current Alcohol intake frequency: a few times a month Patient Tobacco Use Status: Never used Tobacco e-Cigarette/Vaping Use: Never Used Second Hand Smoke Exposure: No service: Yes Current occupational status: employed Current occupation: Nurse Cognitive needs: No Hearing needs: No Vision needs: Yes (Glasses) Questionnaire PHQ-9 Over the last 2 weeks, how often have you been bothered by any of the following problems? 1. Little interest or pleasure in doing things: not at all 2. Feeling down, depressed, or hopeless: not at all 3. Trouble falling or staying asleep, or sleeping too much: not at all 4. Feeling tired or having little energy: not at all 5. Poor appetite or overeating: not at all 6. Feeling bad about yourself - or that you are a failure or have let yourself or your family down: not at all 7. Trouble concentrating on things, such as reading the newspaper or watching television: not at all 8. Moving or speaking so slowly that other people could have noticed. Or the opposite - being so fidgety or restless that you have been moving around a lot more than usual: not at all 9. Thoughts that you would be better off or of hurting yourself in some way: not at all Total score: 0 Depression Screening Interpretation: Negative Depression Screening Done: Yes Source: Developed by Drs. Burt Garcia, Wendy Armando, Blake Eldridge and colleagues, with an educational jeffery from [employer]. Thrive Questionnaire Date Thrive assessed: 05/11/25 I am a: Patient What is your living situation today?: I have a steady place to live Within the past 12 months, did the food you bought not last and you didn't have the money to get more?: Never true Within the past 12 months, did you worry whether your food would run out before you got money to buy more?: Never true Do you have trouble paying for medicines?: No Do you have trouble getting transportation to medical appointments?: No Do you have trouble paying your heating and electricity bill?: No Do you have trouble taking care of your child, family member or friend?: No Do you have trouble with day-to-day activities such as bathing, preparing meals, shopping, managing finances, etc.?: No Are you currently unemployed and looking for a job?: No Are you interested in more education?: No Please select the resources that you would like help with: None Currently or been in a relationship where the following occur: No concerns reported THRIVE Score: 0 AUDIT C Alcohol Use Questionnaire (AUDIT-C) 1. How often do you have a drink containing alcohol?: Monthly or less 2. How many drinks containing alcohol do you have on a typical day when you are drinking?: 1 or 2 3. How often do you have six or more drinks on one occasion?: Never Total Score: 1 HAROON-7 AMB Questionnaire HAROON-7 Date HAROON - 7 assessed: 05/11/25 Feeling nervous, anxious, or on edge: 0 = Not at all Not being able to stop or control worryin = Not at all Worrying too much about different things: 0 = Not at all Trouble relaxin = Not at all Being so restless that it is hard to sit still: 0 = Not at all Becoming easily annoyed or irritable: 0 = Not at all Feeling afraid as if something awful might happen: 0 = Not at all Total HAROON-7 score (0-4 normal; 5-9 mild; 10-14 moderate; 15-21 severe): 0 Source: Developed by Drs. Burt Garcia, Wendy Armando, Blake Eldridge and colleagues, with an educational jeffery from [employer]. Physical exam (Primary Care) Vital Signs: Last Vital Signs Temp 97.3 F 10/13/25 11:03 Pulse 73 10/13/25 11:03 BP 122/74 10/13/25 11:03 Pulse Ox 99 10/13/25 11:03 Oxygen Delivery Method Room Air 10/13/25 11:03 General: Well-appearing, alert, oriented ?3, in no acute distress. HEENT: Normocephalic, atraumatic, PERRLA, EOMI, no scleral icterus. External ears normal, tympanic membranes intact bilaterally, no erythema or effusion. Nares patent, erythematous nasal mucosa, no discharge. Posterior oropharyngeal erythema. Neck Supple. No maxillary or frontal sinus tenderness upon palpation. Cardiovascular: RRR, S1-S2 appreciated, no murmurs, rubs or gallops. Respiratory: Lungs clear to auscultation bilaterally, no wheezes, rales or rhonchi. Abdomen: Soft, nontender, nondistended. Normoactive bowel sounds. BMI result Body Mass Index 22.9 Tobacco/Smoking Status: Tobacco use Status Tobacco use date assessed 10/13/25 10/13/25 11:06 Patient Tobacco Use Status Never used Tobacco 10/13/25 11:06 e-Cigarette/Vaping Use Never Used 10/13/25 11:06 PHQ-9: PHQ-9 Score PHQ-9: Total score 0 10/13/25 11:17 Depression Screening Interpretation: Negative Thrive Assessment: Date of Thrive Assessment Date Thrive assessed 05/11/25 10/13/25 11:06 Currently or been in a relationship where the following occur: No concerns reported Results AMB Rapid Strep AMB Rapid Strep Negative Last Edit by YEMI Hurtado on 10/13/25 11:4 4 Coding Level of Care Code Est Pt Level 4 (05464) Diagnoses Viral upper respiratory tract infection J06.9 URI type: unspecified viral URI Acute laryngitis J04.0 Post-nasal drip R09.82 Assessment & Plan Assessment & Plan (1) URI (upper respiratory infection): Code(s): J06.9 - Acute upper respiratory infection, unspecified Qualifiers: URI type: unspecified viral URI Qualified Code(s): J06.9 - Acute upper respiratory infection, unspecified Plan: Patient presentation of hoarseness, productive cough, sore throat and nasal congestion for a week most likely secondary to viral URI/ laryngitis. Denies fever, afebrile in clinic today. Strep throat test in clinic negative today. Symptomatic management is the primary treatment approach. Antibiotics are not indicated at present but will be considered if symptoms worsen, a fever develops, or if pus is noted. Plan -voice rest, increase fluid intake -naproxen 500 mg twice a day p.r.n. pain -lozenges p.r.n. sore throat -Robitussin p.r.n. cough -patient advised against using decongestants for more than 3 consecutive days as it may cause rebound congestion. (2) Acute laryngitis: Code(s): J04.0 - Acute laryngitis Plan: As above (3) Post-nasal drip: Code(s): R09.82 - Postnasal drip Plan: Patient with complaints of postnasal drip, start Flonase daily for 5 days, then on as needed basis Orders: Orders AMB Rapid Strep Screen Today Z13.9 - Encounter for screening, unspecified Medications: New fluticasone propionate 50 mcg/actuation administer into each nostril 1 spray intranasal DAILY 16 grams 0RF allergic rhinitis naproxen 500 mg PO BID PRN 20 tabs 0RF pain benzocaine (Chloraseptic Warming Sore Throat) 15 mg mucous membrane Q3H PRN 18 ea 0RF sore throat dextromethorphan-guaifenesin 5-100 mg/5 mL (Robitussin Cough-Chest Congestion DM) 10 mL PO Q4-8H PRN 1,000 mL 0RF cough
== END 2025-10-13 12:14 | disposition home or self-care (01) ==
LOC: HO.HMCH 10:53
PROVIDERS: Visit Provider Student in an Organized Health Care Education/Training Program
DX: J06.9 Acute upper respiratory infection, unspecified (principal); J04.0 Acute laryngitis; R09.82 Postnasal drip; Z13.9 Encounter for screening, unspecified

== ENCOUNTER → 2025-10-13 10:53 | Outpatient (BNVA) | payer OTHER, SELFPAY | PROVIDERS: Visit Provider Student in an Organized Health Care Education/Training Program | DX: J04.0 Acute laryngitis (principal); R09.82 Postnasal drip; J06.9 Acute upper respiratory infection, unspecified | CPT/HCPCS: 87880; 96127; 99212 ==